=== PATIENT | male | born 1945 | race Caucasian/White ===

== ENCOUNTER 2017-10-05 09:41 | Inpatient (IN) | payer BC, MEDICARE, OTHER, SELFPAY ==
[~2017-10-05] VITALS: Ht 176.5 cm; Wt 98.2 kg
[2017-10-05] MEDS ORDERED: HYDR12.53 PO (09:51)
[2017-10-05] MEDS ORDERED: SODIUM CHLORIDE 0.9% 1,000 ML IV ONE (09:56)
[2017-10-05] MEDS ORDERED: SODIUM CHLORIDE FLUSH 10ML SYR IVF ONE (10:00)
[2017-10-05] MEDS ORDERED: ONDANSETRON 2MG/ML, 2ML IVPush ONE (10:00)
[2017-10-05] MEDS ORDERED: MECLIZINE CHEWABLE 25 MG TAB PO ONE (10:00)
[2017-10-05] MEDS ORDERED: MECLIZINE CHEWABLE 25 MG TAB ONE (10:25)
[2017-10-05] MEDS ORDERED: ONDANSETRON 2MG/ML, 2ML ONE (10:25)
[2017-10-05 10:32] LABS: BASOPHILS # (AUTO) 0.04 x10^3/uL (0-0.1); BASOPHILS % (AUTO) 1 % (0-1); EOSINOPHILS # (AUTO) 0.08 x10^3/uL (0-0.4); EOSINOPHILS % (AUTO) 1 % (1-7); LYMPHOCYTES # (AUTO) 0.85 x10^3/uL (1-3.4); LYMPHOCYTES % (AUTO) 15 % (22-44); MD NO; MEAN CORPUSCULAR HEMOGLOBIN 31.6 pg (27.5-34.5); MEAN CORPUSCULAR HGB CONC 34.4 g/dL (33.2-36.2); MEAN CORPUSCULAR VOLUME 91.9 fL (81-97); MEAN PLATELET VOLUME 7.7 fL (7.4-10.4); MONOCYTES # (AUTO) 0.33 x10^3/uL (0.2-0.8); MONOCYTES % (AUTO) 6 % (2-9); NEUTROPHILS # (AUTO) 4.47 x10^3/uL (1.8-6.8); NEUTROPHILS % (AUTO) 78 % (42-75); PLATELET COUNT 213 x10^3/uL (130-400); RED BLOOD COUNT 5.17 x10^6/uL (4.38-5.82); RED CELL DISTRIBUTION WIDTH 13.8 % (9.4-14.8)
[2017-10-05 10:43] LABS: ALANINE AMINOTRANSFERASE 44 U/L (12-78); ALBUMIN 3.6 g/dL (3.4-5.0); ANION GAP 6 mmol/L (5-15); CALCIUM 8.9 mg/dL (8.5-10.1); CHLORIDE 106 mmol/L (98-107); CREATININE 1.07 mg/dL (0.7-1.3)
[2017-10-05 10:47] LABS: ALKALINE PHOSPHATASE 58 U/L (45-117); BILIRUBIN,TOTAL 0.7 mg/dL (0.2-1.0); TOTAL PROTEIN 7.9 g/dL (6.4-8.2); TROPONIN I < 0.015 ng/mL (0.000-0.045)
[2017-10-05] MEDS ORDERED: DIAZEPAM 5 MG TABLET PO ONE (12:00)
[2017-10-05] MEDS ORDERED: DIAZEPAM 5 MG TABLET ONE (12:03)
[2017-10-05 12:04] LABS: MICROSCOPIC NOT IND
[2017-10-05 12:18] LABS: CULTURE INDICATED? NO
[2017-10-05] MEDS ORDERED: SODIUM CHLORIDE FLUSH 10ML SYR IVF PRN (13:30)
[2017-10-05] MEDS ORDERED: ONDANSETRON ODT 4 MG PO PRN (14:30)
[2017-10-05] MEDS ORDERED: MECLIZINE CHEWABLE 25 MG TAB PO PRN (14:30)
[2017-10-05] MEDS ORDERED: ONDANSETRON 2MG/ML, 2ML IVPush PRN (14:30)
[2017-10-05] MEDS ORDERED: ACETAMINOPHEN 325 MG TABLET PO PRN (14:30)
[2017-10-05] MEDS: ENOXAPARIN 40 MG/0.4 ML SQ SCH (17:43)
[2017-10-05] MEDS: SODIUM CHLORIDE 0.9% 1,000 ML IV SCH (17:44)
[2017-10-05 19:37] VITALS: BP 160/93
[2017-10-05 21:33] VITALS: BP 147/84
[2017-10-05 21:36] VITALS: BP 143/96
[2017-10-06 04:00] VITALS: BP 142/89
[2017-10-06 05:55] LABS: BASOPHILS # (AUTO) 0.03 x10^3/uL (0-0.1); BASOPHILS % (AUTO) 1 % (0-1); EOSINOPHILS # (AUTO) 0.23 x10^3/uL (0-0.4); EOSINOPHILS % (AUTO) 4 % (1-7); LYMPHOCYTES % (AUTO) 30 % (22-44); MD NO; MEAN CORPUSCULAR HEMOGLOBIN 31.6 pg (27.5-34.5); MEAN CORPUSCULAR HGB CONC 34.1 g/dL (33.2-36.2); MEAN CORPUSCULAR VOLUME 92.6 fL (81-97); MEAN PLATELET VOLUME 7.7 fL (7.4-10.4); MONOCYTES % (AUTO) 11 % (2-9); NEUTROPHILS # (AUTO) 2.83 x10^3/uL (1.8-6.8); NEUTROPHILS % (AUTO) 53 % (42-75); PLATELET COUNT 187 x10^3/uL (130-400); RED BLOOD COUNT 4.62 x10^6/uL (4.38-5.82); RED CELL DISTRIBUTION WIDTH 13.8 % (9.4-14.8)
[2017-10-06] MEDS: SODIUM CHLORIDE 0.9% 1,000 ML IV SCH (06:08)
[2017-10-06 06:11] LABS: CHLORIDE 110 mmol/L (98-107)
[2017-10-06 07:02] LABS: ALANINE AMINOTRANSFERASE 35 U/L (12-78); ALBUMIN 3.1 g/dL (3.4-5.0); ALKALINE PHOSPHATASE 49 U/L (45-117); ANION GAP 8 mmol/L (5-15); BILIRUBIN,TOTAL 0.9 mg/dL (0.2-1.0); CALCIUM 8.6 mg/dL (8.5-10.1); CHOL/HDL RATIO 3.5; CHOLESTEROL, TOTAL 136 mg/dL (140-239); CREATININE 0.96 mg/dL (0.7-1.3); HDL CHOL % 29 % (26-37); HDL CHOLESTEROL (DIRECT) 39 mg/dL (40-60); LDL CHOLESTEROL,CALCULATED 72 mg/dL (54-169); LDL/HDL RATIO 1.8 (0.5-3.0); TOTAL PROTEIN 6.9 g/dL (6.4-8.2); TRIGLYCERIDES 126 mg/dL (50-200); VLDL CHOLESTEROL 25 mg/dL (0-25)
[2017-10-06 08:20] VITALS: BP_SYST 136; BP_SYST 137; BP_SYST 151; BP_DIAS 87; BP_DIAS 93
[2017-10-06] MEDS ORDERED: LORATADINE 10 MG TABLET PO SCH (09:00)
[2017-10-06] MEDS ORDERED: GADOBUTROL 10 MMOL/10 ML PFS ONE (12:16)
[2017-10-06 13:41] VITALS: BP_SYST 131; BP_SYST 144; BP_DIAS 71; BP_DIAS 81; BP_DIAS 82
[2017-10-06] MEDS ORDERED: MECL-85 PO (15:48)
[2017-10-06] MEDS: ENOXAPARIN 40 MG/0.4 ML SQ SCH (18:00)
== END 2017-10-06 18:35 | disposition home or self-care (01) | DRG 149 ==
LOC: ED 11:06 → EDIP 13:19 → 4EST 17:23
PROVIDERS: ADMIT Family Medicine; ATTEND Family Medicine
DX: H81.10 Benign paroxysmal vertigo, unspecified ear (principal); I10 Essential (primary) hypertension; Z85.828 Personal history of other malignant neoplasm of skin; Z96.652 Presence of left artificial knee joint; Z90.49 Acquired absence of other specified parts of digestive tract
CPT/HCPCS: 36415; 70450; 70553; 80053; 80061; 81003; 83735; 84100; 84439; 84443; 84484; 85025; 93005; 93306; 96361; 96374; A9585; J1650; J2405; J7030

== ENCOUNTER 2017-11-29 20:35 | Inpatient (IN) | payer MEDICARE, BC ==
[~2017-11-29] VITALS: Ht 175.3 cm; Wt 102.7 kg
[~2017-11-29 20:35] MED LIST: HYDR12.53 PO; MECL-85 PO
[2017-11-29] MEDS ORDERED: ONDANSETRON ODT 4 MG ONE (20:49)
[2017-11-29] MEDS ORDERED: ONDANSETRON ODT 4 MG PO ONE (21:00)
[2017-11-29] MEDS: ONDANSETRON 2MG/ML, 2ML IVPush ONE ×2 (21:25→21:49)
[2017-11-29] MEDS ORDERED: SODIUM CHLORIDE 0.9% 1,000ML IVBOLUS ONE ×2 (21:30→22:30)
[2017-11-29] MEDS ORDERED: SODIUM CHLORIDE FLUSH 10ML SYR IVF ONE (21:30)
[2017-11-29] MEDS ORDERED: ONDANSETRON 2MG/ML, 2ML ONE (21:34)
[2017-11-29 21:36] LABS: MEAN CORPUSCULAR HEMOGLOBIN 31.7 pg (27.5-34.5); MEAN CORPUSCULAR HGB CONC 34.7 g/dL (33.2-36.2); MEAN CORPUSCULAR VOLUME 91.5 fL (81-97); PLATELET COUNT 142 x10^3/uL (130-400); RED BLOOD COUNT 4.67 x10^6/uL (4.38-5.82); RED CELL DISTRIBUTION WIDTH 13.2 % (9.4-14.8)
[2017-11-29 21:47] LABS: ALANINE AMINOTRANSFERASE 53 U/L (12-78); ALBUMIN 3.2 g/dL (3.4-5.0); ANION GAP 12 mmol/L (5-15); CALCIUM 8.4 mg/dL (8.5-10.1); CHLORIDE 104 mmol/L (98-107); CREATININE 1.84 mg/dL (0.7-1.3)
[2017-11-29 21:50] LABS: ALKALINE PHOSPHATASE 51 U/L (45-117); BILIRUBIN,TOTAL 1.3 mg/dL (0.2-1.0); TOTAL PROTEIN 7.2 g/dL (6.4-8.2)
[2017-11-29 21:54] LABS: MD YES
[2017-11-29 21:56] LABS: BAND#(MANUAL) 2.75 x10^3/uL; BANDS%(MANUAL) 18 % (0-7); LYMPH#(MANUAL) 0.77 x10^3/uL (1-3.4); LYMPHS% (MANUAL) 5 % (22-44); METAMYELOCYTES# (MANUAL) 0.15 x10^3/uL (0-0); METAMYELOCYTES% (MANUAL) 1 % (0-1); MONOS#(MANUAL) 1.07 x10^3/uL (0.3-2.7); MONOS% (MANUAL) 7 % (2-9); SEG#(MANUAL) 10.56 x10^3/uL (1.8-6.8); SEGS% (MANUAL) 69 % (42-75)
[2017-11-29 21:57] LABS: <PLATELET ESTIMATE> ADEQUATE; <PLT MORPHOLOGY> NORMAL PLT MORPH; <RBC MORPHOLOGY> NORMAL
[2017-11-29] MEDS ORDERED: OMNIPAQUE 350 MG/ML, 100ML BOTTLE ONE (23:00)
[2017-11-29] MEDS ORDERED: PROMETHAZINE 25 MG/ML, 1ML IM ONE (23:30)
[2017-11-29] MEDS ORDERED: AZITHROMYCIN 500 MG in SODIUM CHLORIDE 0.9% 250 ML IV ONE (23:30)
[2017-11-29] MEDS ORDERED: CEFTRIAXONE PMX 1GM/50ML 50 ML IV ONE (23:30)
[2017-11-29] MEDS ORDERED: PROMETHAZINE 25 MG/ML, 1ML ONE (23:42)
[2017-11-29] MEDS ORDERED: CEFTRIAXONE PMX 1GM/50ML 50 ML ONE (23:42)
[2017-11-30] MEDS ORDERED: GUAIFENESIN/DM 200-20MG, 10ML UDC PO PRN
[2017-11-30] MEDS ORDERED: ONDANSETRON 2MG/ML, 2ML IVPush PRN
[2017-11-30] MEDS ORDERED: POLYETHYLENE GLYCOL 17 GM PACKET PO PRN
[2017-11-30] MEDS ORDERED: ACETAMINOPHEN 325 MG TABLET PO PRN
[2017-11-30] MEDS ORDERED: morphine SULFATE 10 MG/ML, 1ML IVPush PRN
[2017-11-30] MEDS ORDERED: MECLIZINE CHEWABLE 25 MG TAB PO PRN
[2017-11-30] MEDS ORDERED: DOCUSATE 100 MG CAPSULE PO PRN
[2017-11-30 00:26] VITALS: BP 105/59
[2017-11-30] MEDS: NS + 20MEQ KCL 1,000 ML IV SCH ×2 (00:59→10:01)
[2017-11-30] MEDS: AZITHROMYCIN 500 MG in SODIUM CHLORIDE 0.9% 250 ML IV SCH (00:59)
[2017-11-30] MEDS: ENOXAPARIN 40 MG/0.4 ML SQ SCH (01:00)
[2017-11-30] MEDS: HYDROcodone/APAP 5/325 TABLET PO PRN ×4 (01:15→21:43)
[2017-11-30 04:54] LABS: MICROSCOPIC INDICATED
[2017-11-30 05:08] LABS: CULTURE INDICATED? NO
[2017-11-30 05:28] LABS: MEAN CORPUSCULAR HEMOGLOBIN 31.2 pg (27.5-34.5); MEAN CORPUSCULAR HGB CONC 33.9 g/dL (33.2-36.2); MEAN CORPUSCULAR VOLUME 92.2 fL (81-97); MEAN PLATELET VOLUME 8.1 fL (7.4-10.4); PLATELET COUNT 127 x10^3/uL (130-400); RED BLOOD COUNT 4.27 x10^6/uL (4.38-5.82); RED CELL DISTRIBUTION WIDTH 13.3 % (9.4-14.8)
[2017-11-30 05:40] LABS: CHLORIDE 107 mmol/L (98-107)
[2017-11-30 05:49] LABS: ANION GAP 10 mmol/L (5-15); CALCIUM 7.5 mg/dL (8.5-10.1); CREATININE 1.55 mg/dL (0.7-1.3)
[2017-11-30 05:52] LABS: MD YES
[2017-11-30 05:54] LABS: BAND#(MANUAL) 4.29 x10^3/uL; BANDS%(MANUAL) 32 % (0-7); LYMPH#(MANUAL) 1.07 x10^3/uL (1-3.4); LYMPHS% (MANUAL) 8 % (22-44); METAMYELOCYTES# (MANUAL) 0.13 x10^3/uL (0-0); METAMYELOCYTES% (MANUAL) 1 % (0-1); MONOS% (MANUAL) 6 % (2-9); SEGS% (MANUAL) 53 % (42-75)
[2017-11-30 05:55] LABS: <PLATELET ESTIMATE> ADEQUATE; <PLT MORPHOLOGY> NORMAL PLT MORPH; <RBC MORPHOLOGY> NORMAL
[2017-11-30 06:45] VITALS: BP 108/67
[2017-11-30] MEDS: SENNA/DOCUSATE TABLET PO SCH (08:24)
[2017-11-30 13:06] VITALS: BP 97/62
[2017-11-30 19:25] VITALS: BP 108/68
[2017-11-30] MEDS: CEFTRIAXONE PMX 1GM/50ML 50 ML IV SCH (23:36)
[2017-12-01] MEDS: AZITHROMYCIN 500 MG in SODIUM CHLORIDE 0.9% 250 ML IV SCH (01:03)
[2017-12-01] MEDS: ENOXAPARIN 40 MG/0.4 ML SQ SCH (01:03)
[2017-12-01 01:35] VITALS: BP 107/71
[2017-12-01 05:39] LABS: MEAN CORPUSCULAR HEMOGLOBIN 31.3 pg (27.5-34.5); MEAN CORPUSCULAR HGB CONC 33.6 g/dL (33.2-36.2); MEAN CORPUSCULAR VOLUME 93.2 fL (81-97); MEAN PLATELET VOLUME 8.5 fL (7.4-10.4); PLATELET COUNT 140 x10^3/uL (130-400); RED BLOOD COUNT 4.12 x10^6/uL (4.38-5.82); RED CELL DISTRIBUTION WIDTH 13.7 % (9.4-14.8)
[2017-12-01 05:55] LABS: CHLORIDE 107 mmol/L (98-107)
[2017-12-01 06:00] LABS: ANION GAP 7 mmol/L (5-15); CALCIUM 8.2 mg/dL (8.5-10.1); CREATININE 1.28 mg/dL (0.7-1.3)
[2017-12-01 06:24] LABS: MD YES
[2017-12-01 06:27] LABS: BAND#(MANUAL) 3.59 x10^3/uL; BANDS%(MANUAL) 27 % (0-7); LYMPH#(MANUAL) 1.33 x10^3/uL (1-3.4); LYMPHS% (MANUAL) 10 % (22-44); MONOS#(MANUAL) 1.06 x10^3/uL (0.3-2.7); MONOS% (MANUAL) 8 % (2-9); SEG#(MANUAL) 7.32 x10^3/uL (1.8-6.8); SEGS% (MANUAL) 55 % (42-75)
[2017-12-01 06:29] LABS: <PLATELET ESTIMATE> ADEQUATE; <PLT MORPHOLOGY> NORMAL PLT MORPH; <RBC MORPHOLOGY> NORMAL
[2017-12-01 06:35] VITALS: BP 111/72
[2017-12-01] MEDS: SENNA/DOCUSATE TABLET PO SCH (09:21)
[2017-12-01 12:53] VITALS: BP 129/74
[2017-12-01] MEDS: METOCLOPRAMIDE 5 MG/ML, 2ML IVPush SCH ×2 (13:30→22:31)
[2017-12-01 20:32] VITALS: BP 103/57
[2017-12-01] MEDS: HYDROcodone/APAP 5/325 TABLET PO PRN (21:59)
[2017-12-02] MEDS: CEFTRIAXONE PMX 1GM/50ML 50 ML IV SCH (00:32)
[2017-12-02] MEDS: AZITHROMYCIN 500 MG in SODIUM CHLORIDE 0.9% 250 ML IV SCH (02:18)
[2017-12-02] MEDS: ENOXAPARIN 40 MG/0.4 ML SQ SCH (02:18)
[2017-12-02 02:22] VITALS: BP 105/66
[2017-12-02 05:24] LABS: BASOPHILS # (AUTO) 0.01 x10^3/uL (0-0.1); BASOPHILS % (AUTO) 0 % (0-1); EOSINOPHILS # (AUTO) 0.06 x10^3/uL (0-0.4); EOSINOPHILS % (AUTO) 1 % (1-7); LYMPHOCYTES # (AUTO) 1.12 x10^3/uL (1-3.4); LYMPHOCYTES % (AUTO) 11 % (22-44); MD NO; MEAN CORPUSCULAR HEMOGLOBIN 31.6 pg (27.5-34.5); MEAN CORPUSCULAR HGB CONC 33.9 g/dL (33.2-36.2); MEAN CORPUSCULAR VOLUME 93.1 fL (81-97); MONOCYTES # (AUTO) 1.27 x10^3/uL (0.2-0.8); MONOCYTES % (AUTO) 12 % (2-9); NEUTROPHILS % (AUTO) 77 % (42-75); PLATELET COUNT 180 x10^3/uL (130-400); RED CELL DISTRIBUTION WIDTH 13.9 % (9.4-14.8)
[2017-12-02 05:27] LABS: CHLORIDE 106 mmol/L (98-107)
[2017-12-02 05:35] LABS: ANION GAP 9 mmol/L (5-15); CALCIUM 7.9 mg/dL (8.5-10.1); CREATININE 1.13 mg/dL (0.7-1.3)
[2017-12-02] MEDS: METOCLOPRAMIDE 5 MG/ML, 2ML IVPush SCH (06:57)
[2017-12-02 08:13] VITALS: BP 114/79
[2017-12-02] MEDS: SENNA/DOCUSATE TABLET PO SCH (09:00)
[2017-12-02] MEDS ORDERED: ALBUTEROL/IPRATROPIUM 2.5MG/0.5MG, 3 ML NPPB SCH (11:00)
[2017-12-02 12:25] VITALS: BP 115/72
[2017-12-02] MEDS: HYDROcodone/APAP 5/325 TABLET PO PRN (17:28)
[2017-12-02 19:48] VITALS: BP 107/62
[2017-12-03] MEDS: CEFTRIAXONE PMX 1GM/50ML 50 ML IV SCH ×2 (00:13→23:51)
[2017-12-03 01:31] VITALS: BP 128/72
[2017-12-03] MEDS: AZITHROMYCIN 500 MG in SODIUM CHLORIDE 0.9% 250 ML IV SCH (02:05)
[2017-12-03] MEDS: ENOXAPARIN 40 MG/0.4 ML SQ SCH (02:07)
[2017-12-03 05:21] LABS: MEAN CORPUSCULAR HEMOGLOBIN 31.4 pg (27.5-34.5); MEAN CORPUSCULAR HGB CONC 34.1 g/dL (33.2-36.2); MEAN CORPUSCULAR VOLUME 92.1 fL (81-97); MEAN PLATELET VOLUME 7.9 fL (7.4-10.4); PLATELET COUNT 230 x10^3/uL (130-400); RED BLOOD COUNT 3.97 x10^6/uL (4.38-5.82); RED CELL DISTRIBUTION WIDTH 13.2 % (9.4-14.8)
[2017-12-03 05:28] LABS: ANION GAP 8 mmol/L (5-15); CALCIUM 7.9 mg/dL (8.5-10.1); CHLORIDE 104 mmol/L (98-107)
[2017-12-03 05:31] LABS: CREATININE 0.92 mg/dL (0.7-1.3)
[2017-12-03 06:47] LABS: BASOPHILS # (AUTO) 0.05 x10^3/uL (0-0.1); BASOPHILS % (AUTO) 0 % (0-1); EOSINOPHILS # (AUTO) 0.02 x10^3/uL (0-0.4); EOSINOPHILS % (AUTO) 0 % (1-7); LYMPHOCYTES # (AUTO) 0.75 x10^3/uL (1-3.4); LYMPHOCYTES % (AUTO) 7 % (22-44); MD SCAN; MONOCYTES # (AUTO) 1.08 x10^3/uL (0.2-0.8); MONOCYTES % (AUTO) 9 % (2-9); NEUTROPHILS # (AUTO) 9.74 x10^3/uL (1.8-6.8); NEUTROPHILS % (AUTO) 84 % (42-75)
[2017-12-03 07:35] VITALS: BP 123/71
[2017-12-03] MEDS: SENNA/DOCUSATE TABLET PO SCH (09:00)
[2017-12-03 12:26] VITALS: BP 138/79
[2017-12-03 20:22] VITALS: BP 144/78
[2017-12-03] MEDS: HYDROcodone/APAP 5/325 TABLET PO PRN (21:22)
[2017-12-04 02:26] VITALS: BP 125/86
[2017-12-04] MEDS: ENOXAPARIN 40 MG/0.4 ML SQ SCH (03:03)
[2017-12-04] MEDS: AZITHROMYCIN 500 MG in SODIUM CHLORIDE 0.9% 250 ML IV SCH (03:03)
[2017-12-04 04:57] LABS: BASOPHILS # (AUTO) 0.01 x10^3/uL (0-0.1); BASOPHILS % (AUTO) 0 % (0-1); EOSINOPHILS # (AUTO) 0.09 x10^3/uL (0-0.4); EOSINOPHILS % (AUTO) 1 % (1-7); LYMPHOCYTES # (AUTO) 0.88 x10^3/uL (1-3.4); LYMPHOCYTES % (AUTO) 9 % (22-44); MD NO; MEAN CORPUSCULAR HEMOGLOBIN 31.3 pg (27.5-34.5); MEAN CORPUSCULAR HGB CONC 33.6 g/dL (33.2-36.2); MEAN CORPUSCULAR VOLUME 93.2 fL (81-97); MEAN PLATELET VOLUME 7.7 fL (7.4-10.4); MONOCYTES # (AUTO) 1.29 x10^3/uL (0.2-0.8); MONOCYTES % (AUTO) 13 % (2-9); NEUTROPHILS # (AUTO) 8.07 x10^3/uL (1.8-6.8); NEUTROPHILS % (AUTO) 78 % (42-75); PLATELET COUNT 262 x10^3/uL (130-400); RED BLOOD COUNT 3.86 x10^6/uL (4.38-5.82); RED CELL DISTRIBUTION WIDTH 13.5 % (9.4-14.8)
[2017-12-04 05:11] LABS: CHLORIDE 105 mmol/L (98-107)
[2017-12-04 05:20] LABS: ANION GAP 8 mmol/L (5-15); CALCIUM 8.2 mg/dL (8.5-10.1); CREATININE 1.02 mg/dL (0.7-1.3)
[2017-12-04 06:45] VITALS: BP 138/79
[2017-12-04] MEDS: SENNA/DOCUSATE TABLET PO SCH (08:19)
[2017-12-04] MEDS ORDERED: CEFD300C37 PO (10:55)
[2017-12-04] MEDS ORDERED: GUAI-106 PO (11:05)
[2017-12-04 13:12] VITALS: BP 144/78
== END 2017-12-04 15:17 | disposition home or self-care (01) | DRG 871 ==
LOC: ED 22:03 → SUATTDRO 23:18 → EDIP 23:23 → 4NOR 11-30 00:11 → DCLOUNGE 12-04 15:05
PROVIDERS: ADMIT Family Medicine; ATTEND Family Medicine
DX: A41.9 Sepsis, unspecified organism (principal); J18.9 Pneumonia, unspecified organism; N17.0 Acute kidney failure with tubular necrosis; E44.0 Moderate protein-calorie malnutrition; K56.7 Ileus, unspecified; E86.0 Dehydration; I10 Essential (primary) hypertension; Z68.33 Body mass index [BMI] 33.0-33.9, adult
CPT/HCPCS: 36415; 71275; 74018; 80048; 80053; 81001; 83690; 83735; 83880; 85025; 87040; 87070; 87147; 87205; 94640; 96361; 96372; 96374; J0456; J0696; J1650; J2405; J2550; J3480; Q0162; Q9967; J2765; J7030; J7050